=== PATIENT | female | born 1985 | race Caucasian/White ===

== ENCOUNTER 2020-10-19 12:10 | Emergency (ER) | payer OTHER ==
[~2020-10-19] VITALS: Ht 162.6 cm; Wt 90.0 kg
[2020-10-19 12:30] VITALS: BP 141/61
--- NOTE | 2020-10-19 12:42 | PHYS DOC ---
Past Medical History Past Medical History: Asthma (BRYCE HERNANDEZ APRN) Past Surgical History: Tonsillectomy, Other Additional Past Surgical Histo: CYST REMOVAL (BRYCE HERNANDEZ APRN) Smoking Status: Current Every Day Smoker Alcohol Use: None Drug Use: None (BRYCE HERNANDEZ APRN) General Adult EDM: Chief Complaint: WRIST PAIN HPI: HPI: Patient is a 35 year old female who presents with states that she is on her feet a lot and has generalized swelling throughout her body that comes and goes at times. Her main concern is that her right wrist has some sharp shooting pain through the radial side of it especially when it is being used and with movement. 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 She does use repetitive movement. All this has been going on for a year or more. She currently rates her pain in her right wrist a 3 out of 10. She has not tried any medications to help the wrist. She denies any numbness or tingling, skin color change, sensation changes. (BRYCE HERNANDEZ PAVING FOREMAN) Review of Systems: Review of Systems: Constitutional: Denies fever or chills. [] Eyes: Denies change in visual acuity. [] HENT: Denies nasal congestion or sore throat. [] Respiratory: Denies cough or shortness of breath. [] Cardiovascular: Denies chest pain or + intermittent generalized extremity edema. [] GI: Denies abdominal pain, nausea, vomiting, bloody stools or diarrhea. [] : Denies dysuria. [] Musculoskeletal: Denies back pain. + Right radial side of wrist joint pain. [] Integument: Denies rash. [] Neurologic: Denies headache, focal weakness or sensory changes. [] Endocrine: Denies polyuria or polydipsia. [] Lymphatic: Denies swollen glands. [] Psychiatric: Denies depression or anxiety. [] (BRYCE HERNANDEZ APRN) Heart Score: C/O Chest Pain: No Risk Factors: Risk Factors: DM, Current or recent (<one month) smoker, HTN, HLP, family history of CAD, obesity. Risk Scores: Score 0 - 3: 2.5% MACE over next 6 weeks - Discharge Home Score 4 - 6: 20.3% MACE over next 6 weeks - Admit for Clinical Observation Score 7 - 10: 72.7% MACE over next 6 weeks - Early Invasive Strategies (BRYCE HERNANDEZ APRN) Allergies: Allergies: Allergies Coded Allergies Type Severity Reaction Last Updated Verified morphine Allergy Mild UNKNOWN, CHILDHOOD 08/17/15 Yes (BRYCE HERNANDEZ APRN) Physical Exam: PE: Constitutional: Well developed, well nourished, no acute distress, non-toxic appearance. [] HENT: Normocephalic, atraumatic, bilateral external ears normal, oropharynx moist, no oral exudates, nose normal. [] Eyes: PERRLA, EOMI, conjunctiva normal, no discharge. [] Neck: Normal range of motion, no tenderness, supple, no stridor. [] Cardiovascular:Heart rate regular rhythm, no murmur [] Lungs & Thorax: Bilateral breath sounds clear to auscultation [] Abdomen: Bowel sounds normal, soft, no tenderness, no masses, no pulsatile masses. [] Skin: Warm, dry, no erythema, no rash. [] Back: No tenderness, no CVA tenderness. [] Extremities: No tenderness, no cyanosis, no clubbing, ROM intact, no edema. [] Neurologic: Alert and oriented X 3, normal motor function, normal sensory function, no focal deficits noted. [] Psychologic: Affect normal, judgement normal, mood normal. Normal physical exam [] (BRYCE HERNANDEZ APRN) EKG: EKG: [] (BRYCE HERNANDEZ APRN) Radiology/Procedures: Radiology/Procedures: [] Impression: [facility] [address] [place] [address] IMAGING REPORT Signed PATIENT: DOC HAND RACCOUNT: [id number] : 1985 LOCATION: ER AGE: 35 SEX: F EXAM STATUS: REG ER ORD. PHYSICIAN: BRYCE HERNANDEZ APRN REASON: pain in wrist x 3 weeks. no known injury PROCEDURE: WRIST 3V RIGHT Three-view right wrist HISTORY: Pain for 3 weeks AP lateral oblique views The visualized osseous structures appear normal. IMPRESSION: No acute findings. Electronically signed by: Pepe Velazquez III, MD (10/19/2020 1:22 PM) [facility] DICTATED and SIGNED BY: PEPE VELAZQUEZ III, MD DATE: 10/19/20 [id number] (BRYCE HERNANDEZ APRN) Course & Med Decision Making: Course & Med Decision Making Pertinent Labs and Imaging studies reviewed. (See chart for details) See HPI. No swelling is seen to any of her extremities. Skin is pink warm and dry. Radial and pedal pulses are strong and present. Cap refill less than 2 seconds. Full strengths and sensations. Patient can wiggle her fingers and her toes. Full range of motion in all joints. Patient denies any injuries to any extremities or joints. No tenderness over any joints and there is no redness. X-ray shows no acute findings. Patient is given a Velcro wrist splint. She is to follow-up with her primary care provider. [] (BRYCE HERNANDEZ APRN) Dragon Disclaimer: Dragon Disclaimer: This electronic medical record was generated, in whole or in part, using a voice recognition dictation system. (BRYCE HERNANDEZ APRN) Departure Departure Impression: Primary Impression: Wrist pain, right Additional Impression: Encounter for medical screening examination Disposition: HOME / SELF CARE / HOMELESS Condition: STABLE Referrals: NO PCP (PCP) SOLOMON NESS MD Patient Instructions: Wrist Pain Additional Instructions: Follow-up with an orthopedic doctor and primary care physician. Drink plenty of fluids. Wear the wrist splint. Take ibuprofen for your pain. Attending Signature Attending Signature I have participated in the care of this patient and I have reviewed and agree with all pertinent clinical information above including history, exam, and recommendations. (KELLI ATKINSON DO) BRYCE HERNANDEZ APRN October 19, 2020 12:42 KELLI ATKINSON DO October 21, 2020 17:43
[2020-10-19] MEDS ORDERED: IBUPROFEN 200 MG TABLET. PO ONE (12:45)
[2020-10-19 13:18] LABS: U PREG PATIENT NEGATIVE (NEG)
--- NOTE | 2020-10-19 13:24 | RAD ---
Three-view right wrist HISTORY: Pain for 3 weeks AP lateral oblique views The visualized osseous structures appear normal. IMPRESSION: No acute findings. Electronically signed by: Joey Pope III, MD (10/19/2020 1:22 PM) [facility]
[2020-10-19 13:51] LABS: BASO # 0.1 x10^3/uL (0.0-0.2); BASO % 1 % (0-3); EOS # 0.2 x10^3/uL (0.0-0.7); EOS % 3 % (0-3); HEMATOCRIT 38.5 % (36.0-47.0); HEMOGLOBIN 12.9 g/dL (12.0-15.5); LYMPH # 1.9 x10^3/uL (1.0-4.8); LYMPH % 28 % (24-48); MEAN CORPUSCULAR HEMOGLOBIN 30 pg (25-35); MEAN CORPUSCULAR HGB CONC 34 g/dL (31-37); MEAN CORPUSCULAR VOLUME 90 fL (79-100); MONO # 0.5 x10^3/uL (0.0-1.1); MONO % 8 % (0-9); NEUT # 4.3 x10^3/uL (1.8-7.7); NEUT % 61 % (31-73); PLATELET COUNT 302 x10^3/uL (140-400); RED BLOOD COUNT 4.28 x10^6/uL (3.50-5.40); RED CELL DISTRIBUTION WIDTH 13.3 % (11.5-14.5)
[2020-10-19 14:06] LABS: CALCIUM 8.1 mg/dL (8.5-10.1); CREATININE 0.8 mg/dL (0.6-1.0); GFR 81.6; POTASSIUM 3.7 mmol/L (3.5-5.1)
[2020-10-19 14:10] LABS: ALBUMIN 3.4 g/dL (3.4-5.0); ALBUMIN/GLOBULIN RATIO 1.3 (1.0-1.7); TOTAL BILIRUBIN 0.4 mg/dL (0.2-1.0); TOTAL PROTEIN 6.1 g/dL (6.4-8.2)
== END 2020-10-19 14:55 | disposition home or self-care (01) ==
LOC: ER 12:10
DX: M25.531 Pain in right wrist (principal); J45.909 Unspecified asthma, uncomplicated; F17.200 Nicotine dependence, unspecified, uncomplicated; Z88.5 Allergy status to narcotic agent
CPT/HCPCS: 29125; 36415; 73110; 80053; 81025; 83880; 85025; 99284-25

== ENCOUNTER 2021-03-01 17:26 | Emergency (ER) | payer OTHER ==
[~2021-03-01] VITALS: Ht 162.6 cm; Wt 97.0 kg
--- NOTE | 2021-03-01 18:25 | PHYS DOC ---
Past Medical History Past Medical History: Asthma Past Surgical History: Tonsillectomy, Other Additional Past Surgical Histo: CYST REMOVAL Smoking Status: Current Every Day Smoker Additional Information: 1 PPD Alcohol Use: None Drug Use: None General Adult EDM: Chief Complaint: MULTIPLE COMPLAINTS HPI: HPI: 35-year-old female presents to the emergency room complaining of cough, shortness of breath, fatigue, body aches, overall not feeling well for the past 3 days with gradual onset. She states that she has not been exposed to anybody with Covid symptoms but reports that she recently had a feeling of her with an upper respiratory infection that she was exposed to. She is not vaccinated for COVID-19. The patient admits to nausea, denies vomiting, chest pain, abdominal pain, urinary symptoms, recent trauma, or any other complaints. Last menstrual period was 1 month ago. Review of Systems: Review of Systems: ROS otherwise negative except for what was mentioned in HPI Heart Score: C/O Chest Pain: No Allergies: Allergies: Allergies Coded Allergies Type Severity Reaction Last Updated Verified morphine Allergy Mild UNKNOWN, CHILDHOOD 08/17/15 Yes Physical Exam: PE: Constitutional: No acute distress, non-toxic appearance. HENT: Atraumatic, bilateral external ears normal, nose normal. Eyes: PERRLA, EOMI, conjunctiva normal, no discharge. Neck: Normal range of motion, supple, no stridor. Cardiovascular: Heart rate regular rhythm. 2+ radial pulses Lungs & Thorax: No respiratory distress, symmetrical expansion. Bilateral breath sounds clear to auscultation Abdomen: Soft, no tenderness Skin: Warm, dry. Extremities: No tenderness, no cyanosis, ROM intact, no edema. Neurologic: Alert and oriented X 3, normal motor function, normal sensory function, no focal deficits noted. Non ataxic gait. GCS 15. Psychologic: Affect normal, judgment normal, mood normal. Current Patient Data: Labs: Laboratory Tests Test 03/01/21 18:00 POC Urine HCG, Qualitative Hcg positive (Negative) Vital Signs: Vital Signs Date Time Temp Pulse Resp B/P (MAP) Pulse Ox O2 Delivery O2 Flow Rate FiO2 03/01/21 17:52 98.2 104 20 169/65 (99) 99 Room Air 98.2 Radiology/Procedures: Radiology/Procedures: PROCEDURE: OB < 14 WKS Exam: Ultrasound OB less than 14 weeks Indication: Nausea vomiting Technique: Real-time grayscale and color Doppler images of the pelvis were obtained by the department home day care provider. Comparisons: None FINDINGS: Uterus measures 9.7 x 7.1 x 6.4 cm. Within the endometrium there is a gestational sac with internal yolk sac and pole. [place]-rump length measured 8 mm corresponding to 6 weeks 5 days gestation. Ovaries are not visualized. No free fluid in the pelvis. IMPRESSION: Single live intrauterine gestation measuring 6 weeks 5 days by current ultrasound. Correlate with LMP. Electronically signed by: Susanne Quevedo MD (03/01/2021 9:12 PM) No airspace disease, infiltrates or consolidations, lung galvan clear. No pneumothorax or pleural effusion. Cardiac silhouette within normal limits. No widening of mediastinum. No obvious free air seen. Impression: normal CXR. Interpreted by me, Vidal Barton D.O. Course & Med Decision Making: Course & Med Decision Making Patient appears that this was positive, her ultrasound showed an intrauterine p regnancy with heart tones at 128 bpm, 6-week 5-day approximate . Symptoms today are likely related to . Flu and Covid testing was negative. Departure Departure Impression: Primary Impression: Not feeling great Additional Impressions: Intrauterine Asymptomatic bacteriuria during Disposition: 01 HOME / SELF CARE / HOMELESS Condition: STABLE Referrals: NO PCP (PCP) Patient Instructions: ABCs of Additional Instructions: You are seen today and your test was positive, your ultrasound was reassuring for a well developing at 6 weeks and 5 days. Please follow-up with an SLOT OPERATIONS DIRECTOR provider for further care. Your urine today was positive for bacteria. I sent a prescription to the pharmacy [facility] Nitrofurantoin Monohyd/M-Cryst (MACROBID 100 MG CAPSULE) 100 Mg Capsule 1 CAP PO BID for 7 Days, #14 CAP 0 Refills Prov: VIDAL BARTON DO 03/01/21 VIDAL BARTON DO Mar 01, 2021 18:25
[2021-03-01] MEDS ORDERED: IV NORMAL SALINE 1000ML BAG 1,000 ML IV ONE (18:30)
[2021-03-01 18:36] LABS: BASO % 1 % (0-3); EOS # 0.1 x10^3/uL (0.0-0.7); EOS % 1 % (0-3); HEMATOCRIT 39.9 % (36.0-47.0); HEMOGLOBIN 13.9 g/dL (12.0-15.5); LYMPH # 1.3 x10^3/uL (1.0-4.8); LYMPH % 26 % (24-48); MEAN CORPUSCULAR HEMOGLOBIN 31 pg (25-35); MEAN CORPUSCULAR HGB CONC 35 g/dL (31-37); MEAN CORPUSCULAR VOLUME 90 fL (79-100); MONO # 0.7 x10^3/uL (0.0-1.1); MONO % 14 % (0-9); NEUT # 2.9 x10^3/uL (1.8-7.7); NEUT % 58 % (31-73); PLATELET COUNT 264 x10^3/uL (140-400); RED BLOOD COUNT 4.45 x10^6/uL (3.50-5.40); RED CELL DISTRIBUTION WIDTH 13.9 % (11.5-14.5)
[2021-03-01 18:38] LABS: BILIRUBIN,URINE NEGATIVE (NEG); CLARITY,URINE CLEAR; COLOR,URINE YELLOW; NITRITE,URINE NEGATIVE (NEG); PH,URINE 5.5 (<5.0-8.0); PROTEIN,URINE NEGATIVE (NEG-TRACE); UROBILINOGEN,URINE 0.2 mg/dL (0.2 mg/dL)
[2021-03-01 18:47] LABS: CALCIUM 9.2 mg/dL (8.5-10.1); CREATININE 0.8 mg/dL (0.6-1.0); GFR 81.6; POTASSIUM 3.6 mmol/L (3.5-5.1)
[2021-03-01 18:50] LABS: BACTERIA,URINE FEW /HPF (0-FEW); HYALINE CASTS, URINE OCCASIONAL /HPF; RBC,URINE 0 /HPF (0-2); WBC,URINE RARE /HPF (0-4)
[2021-03-01 18:54] LABS: INFLUENZA A PATIENT NEGATIVE (NEGATIVE); INFLUENZA B PATIENT NEGATIVE (NEGATIVE)
[2021-03-01] MEDS ORDERED: ACETAMINOPHEN 500 MG TABLET PO ONE (19:00)
[2021-03-01] MEDS ORDERED: ONDANSETRON PF 4 MG/2 ML VIAL. IVP ONE (19:00)
--- NOTE | 2021-03-01 21:15 | RAD ---
Exam: Ultrasound OB less than 14 weeks Indication: Nausea vomiting Technique: Real-time grayscale and color Doppler images of the pelvis were obtained by the department snagger. Comparisons: None FINDINGS: Uterus measures 9.7 x 7.1 x 6.4 cm. Within the endometrium there is a gestational sac with internal y olk sac and pole. [place]-rump length measured 8 mm corresponding to 6 weeks 5 days gestation. Ovaries are not visualized. No free fluid in the pelvis. IMPRESSION: Single live intrauterine gestation measuring 6 weeks 5 days by current ultrasound. Correlate with LMP . Electronically signed by: Susanne Quevedo MD (03/01/2021 9:12 PM) [facility]
--- NOTE | 2021-03-01 21:16 | RAD ---
XR CHEST 1V CLINICAL INDICATIONS: Reason: cough COMPARISON: April 07, 2012. Findings: No acute lung infiltrate or pleural effusion or pulmonary edema or lung mass or pneumothora x is seen. The heart size, pulmonary vasculature, mediastinum and both roseanne are unremarkable. IMPRESSION: No acute radiographic abnormality is seen. Electronically signed by: Santana Vasquez MD (03/01/2021 9:14 PM) [id number]
[2021-03-01 21:23] VITALS: BP 106/54
[2021-03-01] MEDS ORDERED: NITR100C62 PO (21:29)
--- NOTE | 2021-03-03 16:21 | NUR ---
IP: Informed pt of positive covid test and the need to quarantine for 10 days. Pt hung up before I could confirm understanding.
== END 2021-03-01 21:52 | disposition home or self-care (01) ==
LOC: ER 17:26
DX: O98.511 Other viral diseases complicating pregnancy, first trimester (principal); U07.1 COVID-19; O26.891 Other specified pregnancy related conditions, first trimester; R82.71 Bacteriuria; R05 Cough; R06.02 Shortness of breath; J45.909 Unspecified asthma, uncomplicated; Z88.5 Allergy status to narcotic agent; Z3A.08 8 weeks gestation of pregnancy
CPT/HCPCS: 36415; 71045; 76801; 80048; 81001; 81025; 84702; 85025; 87426; 87804; 96361; 96374; 99285; J2405; J7030; U0003; U0005